=== PATIENT | female | born 1945 | race African-American/Black ===

== ENCOUNTER → 2016-12-17 | Outpatient (CLI) | payer OTHER | LOC: RAD 03:45 | DX: Z12.31 Encounter for screening mammogram for malignant neoplasm of breast (principal) ==

== ENCOUNTER → 2017-12-27 | Outpatient (CLI) | payer OTHER | LOC: RAD 04:24 | DX: Z12.31 Encounter for screening mammogram for malignant neoplasm of breast (principal) ==

== ENCOUNTER → 2019-01-05 | Outpatient (CLI) | payer OTHER | LOC: RAD 01:18 | DX: Z12.31 Encounter for screening mammogram for malignant neoplasm of breast (principal) ==

== ENCOUNTER → 2020-01-09 | Outpatient (CLI) | payer OTHER | LOC: BC 14:01 | PROVIDERS: ATTEND Internal Medicine | DX: Z12.31 Encounter for screening mammogram for malignant neoplasm of breast (principal) ==

== ENCOUNTER → 2020-01-28 | Outpatient (CLI) | payer OTHER | LOC: BC 08:59 | PROVIDERS: ATTEND Internal Medicine | DX: N63.20 Unspecified lump in the left breast, unspecified quadrant (principal); N64.89 Other specified disorders of breast ==

== ENCOUNTER → 2020-01-31 | Outpatient (CLI) | payer OTHER ==
--- NOTE | 2020-02-04 17:06 | PATH ---
[facility] [address] [place] [address] PATHOLOGY RPT PROCEDURE Name: LUCIE LUZ Room #: REG CORDELIA Shipman.#: [id number] Admission: 01/31/20 Date of : 45 Discharge: Report #: [id number] Path Case #: [id number] [facility] Accession Number: [id number] . 01 Material submitted: . breast - LEFT BREAST MASS, 2:00 - SA. Modifiers: left, 2:00 . 01 Clinical history: . LEFT BREAST MASS . 02 Diagnosis: Breast, left breast at 2:00 subareola, needle core biopsy: - Benign breast tissue with dense stromal fibrosis associated with scant calcifications, markedly dilated ducts, mild adenosis, columnar cell change as well as apocrine metaplasia. - Negative for hyperplasia or malignancy. (IUV:viola; 02/04/2020) QMS 02/04/2020 1254 Local . 02 Electronically signed: . Mikaela Hinson MD, Pathologist NPI- [id number] . 01 Gross description: . The specimen is received in formalin, labeled "Lucie Luz, left breast 2:00 SA". Received are multiple needle cores of fibrofatty tissue measuring 1.7 x 0.6 x 0.2 cm in aggregate dimensions. The specimen is submitted entirely in cassettes A1 through A3. The cold ischemic time is 3 minutes. The total formalin fixation time is 36 hours and 22 minutes. (CAA; 02/01/2020) QAC/QAC 02/01/2020 1803 Local . 02 Pathologist provided ICD-10: N60.32, N60.22, N60.82 . 02 CPT . 421380 Specimen Comment: A courtesy copy of this report has been sent to [phone] Specimen Comment: [id number] Specimen Comment: Report sent to / DR DUMONT Performed at: [address] [id number] MD Sanjay Costello MD Phone: [phone] Performed at: 02 [place] [address] PATHOLOGY RPT PROCEDURE Name: LUCIE LUZ Room #: REG CORDELIA Flores#: [id number] Admission: 01/31/20 Date of : 45 Discharge: Report #: [id number] Path Case #: [id number] [address] [facility], [place], [place] [id number] MD Mikaela Hinson MD Phone: [phone]
== END | disposition home or self-care (01) ==
LOC: ULTRA 09:41
PROVIDERS: ATTEND Radiology Diagnostic Radiology
DX: N60.32 Fibrosclerosis of left breast (principal); N60.22 Fibroadenosis of left breast; N60.82 Other benign mammary dysplasias of left breast; R92.1 Mammographic calcification found on diagnostic imaging of breast

== ENCOUNTER → 2020-09-11 | Outpatient (CLI) | payer OTHER | LOC: ULTRA 13:44 | PROVIDERS: ATTEND Internal Medicine | DX: N64.4 Mastodynia (principal) ==

== ENCOUNTER → 2021-03-16 | Outpatient (CLI) | payer OTHER | LOC: BC 03-09 16:17 | PROVIDERS: ATTEND Internal Medicine | DX: Z12.31 Encounter for screening mammogram for malignant neoplasm of breast (principal) ==